=== PATIENT | female | born 1940 ===

== ENCOUNTER 2020-03-29 09:51 | Outpatient (CLI) | payer MEDICARE, SELFPAY ==
--- NOTE | 2020-03-29 10:01 | USCV_ITS ---
Chelsea Richard Age: 79 Gender: F : 1940 Exam Date: 03/29/2020 10:58 Ordering Phys: Fatimah Gtz MD ([email or web address]) Technologist: Tiara Nguyen [place] [facility] [place]ication: NONRHUEMATIC AORTIC STENOSIS BP: 158 / 67 HR: 73 Rhythm: Sinus Technical Quality: Adequate MEASUREMENTS (Male / Female) Normal Values 2D ECHO LV Diastolic Diameter PLAX 4.1 cm 4.2 - 5.9 / 3.9 - 5.3 cm LV Systolic Diameter PLAX 2.7 cm IVS Diastolic Thickness 1.5 cm 0.6 - 1.0 / 0.6 - 0.9 cm IVS Systolic Thickness 1.8 cm LVPW Diastolic Thickness 1.3 cm 0.6 - 1.0 / 0.6 - 0.9 cm LVPW Systolic Thickness 1.7 cm RV Chamber Size 3.1 cm LVOT Diameter 2.0 cm LV Ejection Fraction 2D Teich 62.1 % LV Ejection Fraction MOD 2C 64.8 % LV Ejection Fraction 2C AL 66.8 % LA Diameter 3.8 cm LA Width 3.3 cm LA Height 5.6 cm RA Width 3.2 cm RA Height 4.0 cm Aorta at Sinotubular Diameter 2.0 cm M-MODE LV Diastolic Diameter MM 4.8 cm 4.2 - 5.9 / 3.9 - 5.3 cm LV Systolic Diameter MM 2.9 cm LV Ejection Fraction MM Teich 70.7 % IVS Diastolic Thickness MM 1.1 cm 0.6 - 1.0 / 0.6 - 0.9 cm IVS Systolic Thickness MM 1.6 cm LVPW Diastolic Thickness MM 1.9 cm 0.6 - 1.0 / 0.6 - 0.9 cm LVPW Systolic Thickness MM 2.6 cm Aortic Annulus Diameter 3.2 cm LA Ao Ratio MM 1.3 MV E Point Septal Separation 0.6 cm DOPPLER AV Peak Velocity 249.0 cm/s LVOT Peak Velocity 107.0 cm/s AV Area Cont Eq vti 1.5 cm squared AV Area Cont Eq pk 1.4 cm squared MV Area PHT 3.6 cm squared Mitral E to A Ratio 0.7 MV E' Velocity 39.0 cm/s Mitral E to MV E' Ratio 10.0 Mitral E to LV E' Lateral Ratio 10.0 Mitral E to LV E' Septal Ratio 10.0 TR Peak Velocity 179.0 cm/s TR Peak Gradient 12.8 mmHg Right Atrial Pressure 3.0 mmHg Pulmonary Artery Systolic Pressu 15.8 mmHg PV Peak Velocity 97.0 cm/s RV Acceleration Time 0.1 s RV Ejection Time 0.3 s RV AcT/ET 0.3 FINDINGS Left Ventricle Normal left ventricular size and systolic function with no regional wall motion abnormalities. Left ventricular ejection fraction is estimated at 60-65 %. Grade I diastolic dysfunction (abnormal relaxation filling pattern), normal to mildly elevated filling pressures. Right Ventricle Normal right ventricular size and systolic function. Right ventricular systolic pressure 15.8 mmHg. Right Atrium Normal right atrial size. Left Atrium Upper normal left atrial size. Mitral Valve Moderate mitral annular calcification. Thickened mitral valve. No mitral valve stenosis. Trace mitral valve regurgitation. Aortic Valve Thickened and calcified aortic valve. Mild aortic valve stenosis, mean gradient 11.2 mmHg, ANIKET 1.5 cm squared. Mild-to- moderate aortic valve regurgitation. Tricuspid Valve Structurally normal tricuspid valve. Pulmonic Valve Pulmonic valve not well visualized. Trace pulmonary valve regurgitation. Pericardium No pericardial effusion. Normal sized inferior vena cava. Aorta Aorta not well visualized. CONCLUSIONS 1. Normal left ventricular size and systolic function with no regional wall motion abnormalities. Left ventricular ejection fraction is estimated at 60-65 %. Grade I diastolic dysfunction (abnormal relaxation filling pattern), normal to mildly elevated filling pressures. 2. Normal right ventricular size and systolic function. 3. Mild aortic valve stenosis, mean gradient 11.2 mmHg, ANIKET 1.5 cm squared. 4. [id number] aortic valve regurgitation. 5. No significant change when compared to previous echocardiogram dated 03/09/2017. Fatimah Gzt MD (Electronically Signed) Final Date: 01 April 2020 17:41 S
== END 2020-03-29 09:52 | disposition home or self-care (01) ==
LOC: US 09:57
PROVIDERS: PCP Internal Medicine; Visit Provider Internal Medicine Cardiovascular Disease
DX: I35.0 Nonrheumatic aortic (valve) stenosis (principal)
CPT/HCPCS: 93306

== ENCOUNTER 2020-07-17 09:19 | Outpatient (CLI) | payer MEDICARE, SELFPAY ==
[2020-07-17 09:33] VITALS: BMI 33.4
--- NOTE | 2020-07-17 09:33 | NMCV_ITS ---
NM mirna perf SPECT r/s* [id number] Chelsea Richard Age: 79 Gender: F : 1940 Exam Date: 07/17/2020 10:28 Ordering Phys: Fatimah Gtz MD ([email or web address]) Technologist: ILA Boo Exam Location: [facility] Indications: Dyspnea on exertion, history of CAD STRESS TEST [facility] IMAGE PROTOCOL Rest/Stress 1 Lexiscan Day Radiopharmaceutical Dose (mCi) Administration Site Administered by Rest: Tc-99m 11.0 IV ILA Samuel Sestamibi Stress:Tc-99m 33.0 IV ILA Samuel Sestamibi Rest: 17-Jul-2020 60 Discovery 630 Stress: 17-Jul-2020 30 Discovery 630 0.4mg Lexiscan. Supine position only as patient was unable to lay prone. SPECT RESULTS Technical Quality: Excellent Raw Data Analysis: Normal Image Corrections: No attenuation or motion correction applied Summed Stress Score: 0 Summed Rest Score: 1 Summed Difference Score: 0 PERFUSION FINDINGS Small size perfusion abnormality of mild severity of apical inferior and apical lateral powers on rest images with improved tracer uptake on stress images. This is suggestive of attenuation artifact. FUNCTIONAL RESULTS (calculated via Gated SPECT) Stress Image LV EF (%): 80 Stress EDV (mL):108 TID: 1.1 Stress ESV (mL):22 FUNCTIONAL FINDINGS: The left ventricle is small. Transient Ischemia Dilatation of 1.1. The left ventricular ejection fraction is hyperdynamic with a value of 80%. Left ventricular ejection fraction is overestimated due to small left ventricular cavity size. There is hyperdynamic left ventricular wall thickening with no regional wall motion abnormality. Normal end-diastolic and end-systolic volumes. IMPRESSIONS 1. Myocardial perfusion imaging is normal. 2. Overall left ventricular systolic function is hyperdynamic without regional wall motion abnormalities. 3. The left ventricular ejection fraction is hyperdynamic with a value of 80%. 4. No coronary ischemia based on the study. 5. No prior similar studies to compare. Fatimah Gtz MD (Electronically Signed) Final Date: 19 Jul 2020 17:50 S
--- NOTE | 2020-07-17 09:33 | ECG_ITS ---
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 Interpretive Statements NAME OF STUDY: LEXISCAN SESTAMIBI STRESS TEST INDICATION: Dyspnea on exertion, history of CAD PROCEDURE: At the baseline, the blood pressure was 138/53 mmHg, oxygen saturation 95% with a heart rate of 59 bpm. The electrocardiogram showed normal sinus rhythm, normal axis. Left bundle branch block. The Lexiscan was infused over a period of 20 seconds. A total of 0.4 milligrams of Lexiscan was infused. The stress phase was continued for a total of 5 minutes. Heart rate at the end of the stress phase was 68 bpm, oxygen saturation 96% with a blood pressure of 109/48 mmHg. The EKG at the peak infusion revealed sinus rhythm with no significant ST-T wave changes. Sestamibi was injected 20 seconds after the Lexiscan infusion. Blood pressure at the end of the recovery phase was 112/43 mmHg, oxygen saturation 97% with a heart rate of 70 beats per minute. CONCLUSION: 1. Nondiagnostic EKG changes with the LexiScan infusion given baseline left bundle branch block. 2. No LexiScan induced chest pain or cardiac arrhythmia. 3. Normal blood pressure and heart rate response. 4. Sestamibi/sestamibi perfusion scan pending; see separate report. Electronically Signed On 07-19-2020 17:53:18 CDT by Fatimah Gtz M.D. [email or web address]
[2020-07-17] MEDS: regadenoson 0.4 Mg/5 ml Syringe IVP (11:12)
[2020-07-17 11:15] VITALS: BP 112/43; PULSE 70
== END 2020-07-17 09:20 | disposition home or self-care (01) ==
LOC: CDL 09:21
PROVIDERS: PCP Internal Medicine; Visit Provider Internal Medicine Cardiovascular Disease
DX: I25.10 Atherosclerotic heart disease of native coronary artery without angina pectoris (principal)
CPT/HCPCS: 78452; 93017; A9500; J2785

== ENCOUNTER 2020-10-16 12:48 | Outpatient (CLI) | payer MEDICARE, SELFPAY ==
--- NOTE | 2020-10-16 12:45 | USCV_ITS ---
Chelsea Richard Age: 79 Gender: F : 1940 Exam Date: 10/16/2020 13:32 Ordering Phys: Fatimah Gtz MD ([email or web address]) Technologist: Denisse Vivas [place] [facility] [facility] [place]: PAD Risk Factors: Previous Vascular Surgery: RIGHT LEFT BP: 122.0 / BP: 125.0/ 0 0 Waveform Velocity (cm/s) Velocity (cm/s) Waveform Monophasic 168.5 Iliac Prox 122.0 Monophasic Monophasic 240.1 Iliac Mid 126.5 Monophasic Monophasic 276.2 Iliac Distal 161.9 Monophasic Monophasic 270.2 QA AUTOMATION DEVELOPER 172.7 Monophasic Monophasic 155.2 SFA Prox 107.8 Monophasic Monophasic 132.6 SFA Mid 84.6 Monophasic Monophasic SFA Dist Monophasic 132.3 103.4 Monophasic 128.1 POP 75.2 Monophasic Monophasic 43.4 FISH MACHINE FEEDER 54.7 Monophasic Monophasic 44.0 DPA 46.1 Monophasic 0.6 DEVIN 0.4 FINDINGS Moderate to heavy heterogeneous plaques in the iliac and popliteal arteries bilaterally Diminished resting DEVIN of 0.6 on the right side and 0.4 on the left side CONCLUSIONS 1. Abnormal resting DEVIN, suggestive of moderately severe peripheral artery disease on the right side and severe disease on the left side. 2. Moderate to heavy heterogeneous plaques in the iliac and femoral arteries bilaterally Dr Po Batista MD [facility] (Electronically Signed) Final Date: 16 October 2020 18:31 S
--- NOTE | 2020-10-16 13:30 | USCV_ITS ---
Chelsea Richard Age: 79 Gender: F : 1940 Exam Date: 10/16/2020 13:17 Ordering Phys: Fatimah Gtz MD ([email or web address]) Technologist: Denisse Vivas [place]am [place] [facility] [place] [facility] [place] Indication: PAD Risk Factors: Previous Vascular Surgery: Right Brachial BP: / Left Brachial BP: / Right Left Velocity (cm/s) Spectral Plaque Velocity (cm/s) Spectral Plaque Syst/Diast Broadening Syst/Diast Broadening 261.30/19.80 Prox CCA 96.60 / 8.30 60.70/ 11.10 Mid CCA 166.30/ 17.00 70.90/ 12.80 Distal CCA 107.80/ 17.10 156.90/15.50 Prox ICA 178.10/ 19.80 103.70/23.50 Mid ICA 154.40/ 16.10 64.90/ 15.40 Distal ICA 127.00/ 25.40 189.80 ECA 237.20 0.60 ICA/CCA 1.07 Antegrade Vertebral Antegrade 35.00/ 11.70 cm/s 100.3/ 11.00 cm/s 0 Tri Subclavian Tri 118.0 320.8 0 0 FINDINGS Moderate to heavy heterogeneous plaques of the bifurcation and proximal internal carotid arteries bilaterally Mild to moderate diffuse plaques in the common carotid arteries bilaterally Elevated velocities in the left external carotid and subclavian arteries Antegrade flow in the vertebral arteries bilaterally CONCLUSIONS Moderate to heavy heterogeneous plaques at the bifurcations and proximal internal carotid arteries bilaterally with elevated velocities, consistent with 50 to 69% stenosis. Elevated velocities in the left external carotid and subclavian arteries, suggestive of hemodynamically significant stenosis. Mild to moderate diffuse plaques in the common carotid arteries bilaterally. No similar previous studies are available for comparison Dr Po Batista MD [facility] (Electronically Signed) Final Date: 16 October 2020 18:42 S
== END 2020-10-16 12:49 | disposition home or self-care (01) ==
LOC: RAD 12:49
PROVIDERS: PCP Internal Medicine; Visit Provider Internal Medicine Cardiovascular Disease
DX: I73.9 Peripheral vascular disease, unspecified (principal); I65.23 Occlusion and stenosis of bilateral carotid arteries; I70.8 Atherosclerosis of other arteries
CPT/HCPCS: 93880; 93925

== ENCOUNTER 2020-11-13 10:33 | Outpatient (CLI) | payer MEDICARE, SELFPAY ==
[2020-11-13 11:11] LABS: Blood Urea Nitrogen 21 mg/dL (8-23)
== END 2020-11-13 10:34 | disposition home or self-care (01) ==
PROVIDERS: PCP Internal Medicine; Visit Provider Internal Medicine Cardiovascular Disease
DX: Z01.818 Encounter for other preprocedural examination (principal); N18.30 Chronic kidney disease, stage 3 unspecified
CPT/HCPCS: 82565; 84520

== ENCOUNTER → 2020-11-16 11:02 | Outpatient (BNVA) | payer MEDICARE, SELFPAY | PROVIDERS: PCP Internal Medicine; Visit Provider Internal Medicine Cardiovascular Disease | DX: Z01.818 Encounter for other preprocedural examination (principal); Z20.822 Contact with and (suspected) exposure to COVID-19 | CPT/HCPCS: 87635 ==

== ENCOUNTER 2020-11-22 10:45 | Outpatient (CLI) | payer MEDICARE, SELFPAY ==
--- NOTE | 2020-11-22 13:19 | PFTS_ITS ---
Date of Study:11/22/20 Date of Dictation: MECHANICS: Forced vital capacity (FVC) is normal. Forced expiratory volume in one second (FEV1) is normal. FEV1/FVC is normal. FLOW VOLUME LOOP: Normal. LUNG VOLUMES: Total lung capacity (TLC) is normal. Residual volume (RV) is reduced. DIFFUSING CAPACITY FOR CARBON MONOXIDE: Moderately reduced. INTERPRETATION: The prebronchodilator spirometry is normal. The total lung capacity is normal. There is mild reduction in residual volume which is nonspecific or could be suggestive of early interstitial lung disease. Gas exchange (DLCO) is moderately reduced. MTDD
== END 2020-11-22 10:46 | disposition home or self-care (01) ==
PROVIDERS: PCP Internal Medicine; Visit Provider Internal Medicine Cardiovascular Disease
DX: R06.00 Dyspnea, unspecified (principal)
CPT/HCPCS: 94010; 94726; 94729